=== PATIENT | female | born 1930 | race Caucasian/White ===

== ENCOUNTER 2020-04-24 18:37 | Inpatient (IN) ==
[2020-04-24] MEDS ORDERED: MAGNESIUM SULFATE 2 GM/50 ML BAG IV PRN (20:05)
[2020-04-24] MEDS ORDERED: ONDANSETRON 4 MG ODT TABLET SL PRN (20:05)
[2020-04-24] MEDS ORDERED: POTASSIUM CHLORIDE 40 MEQ in DEXTROSE 5% IN WATER 500 ML IV PRN (20:05)
[2020-04-24] MEDS ORDERED: POLYETHYLENE GLYCOL 3350 17 GM PACKET PO PRN (20:05)
[2020-04-24] MEDS ORDERED: IPRATROPIUM/ALBUTEROL 3 ML AMPUL.NEB NEB PRN (20:05)
[2020-04-24] MEDS ORDERED: ONDANSETRON 4 MG/2 ML VIAL IV PRN (20:05)
[2020-04-24] MEDS ORDERED: BISACODYL 10 MG SUPP.RECT PR PRN (20:05)
[2020-04-24] MEDS ORDERED: ACETAMINOPHEN 650 MG/65 ML BOTTLE IV PRN (20:05)
[2020-04-24] MEDS ORDERED: ACETAMINOPHEN 325 MG TABLET PO PRN (20:05)
[2020-04-24] MEDS ORDERED: guaiFENesin/CODEINE 10 ML UDC PO PRN (20:05)
[2020-04-24] MEDS ORDERED: MELATONIN 3 MG TABLET PO PRN (20:05)
[2020-04-24] MEDS ORDERED: POTASSIUM CHLORIDE 20 MEQ PACKET PO PRN (20:05)
[2020-04-24] MEDS ORDERED: VANCOMYCIN PER PHARMACY IV ONE (20:09)
[2020-04-24] MEDS ORDERED: AZTREONAM 2 GM VIAL IV SCH (20:15)
--- NOTE | 2020-04-24 20:21 | Internal Med History&Physical ---
HPI History of Present Illness Patient information: Note initiated : 04/24/20 at 8:11 pm Service Date, if different from initiated Date: [] Patient: Darlyn Tarango a 89 y/o F admitted on 04/24/20 for Hypoxia respiratory failure, pneumonia. Chief Complaint: [] History of present illness: Ms. Tarango is a 89 year old F fairly independent who lives a [place] presented to the [facility] ER with symptoms of increased weakness, fatigue malaise and loss of appetite. Symptoms have been progressing over the last couple of weeks with increasing yellowish-greenish foul-smelling sputum. She denies recent sick contacts but has been experiencing fever. She also has associated increasing dyspnea on exertion. With worsening symptoms she was evaluated where initial work-up was consistent with severe sepsis with white count 20,000, chest imaging consistent with right-sided volume loss/right midlung opacity consistent with consolidation and lobar collapse. She also carries a history of apical lobe mass lesion which she has been refusing further evaluation including a biopsy. Subsequently case was discussed with infectious specialist Dr. Sanchez who suggested treatment with aztreonam Zyvox and Flagyl. Unfortunately [facility] does not carry those antibiotics and the reason [facility] hospitalist was consulted for transfer and management of pneumonia. Patient was made aware and she agreed for transfer however she still would not want to pursue evaluation of possible lung malignancy leading to lung collapse. I received telephone signout from Dr. Fernando Blood Patient received at [facility] in stable state. Currently on room air minimally tachypneic. Able to answer most of the questions and endorse history as above. She denies diarrhea, dysuria, joint pain, rash, nausea vomiting or bloody stool. Review of systems 10 point review system was performed and is negative except for ones discussed above PFSH PFSH All Active Problems (Updated 02/09/20 @ 10:01 by Alphonso Snow MD) CHF (congestive heart failure) (Acute) Glaucoma (Acute) Pernicious anemia (Acute) Headache (Acute) Gastroenteritis (Acute) Dehydration (Acute) Hypertension (Acute) Episode of syncope (Acute) Constipation (Acute) Anemia (Acute) Hypothyroidism (Acute) Fall (Acute) Hematoma of parietal scalp (Acute) Acute hip pain (Acute) Chondrocalcinosis (Acute) Ascites (Acute) Medical History (Updated 02/09/20 @ 10:01 by Alphonso Snow MD) H/O supraventricular tachycardia (Acute) History of stomach cancer (Acute) Osteoporosis (Acute) Peripheral arterial disease (Acute) Social History (Updated 01/26/19 @ 10:47 by Cordelia Garcia PA-C) smoking status: Former smoker MEDS/ALLERGIES Home Medications and Allergies Home Medications Medication Instructions Recorded Confirmed Type levothyroxine 50 mcg capsule 50 mcg PO QDAY 01/26/19 02/08/20 History ascorbic acid (vitamin C) [Vitamin 500 mg PO DAILY 02/08/20 02/08/20 History C] atorvastatin 10 mg PO QDAY 02/08/20 02/08/20 History calcium carbonate 500 mg PO BID 02/08/20 02/08/20 History cholecalciferol (vitamin D3) 50 mcg PO QDAY 02/08/20 02/08/20 History [Vitamin D3] famotidine 20 mg PO QDAY 02/08/20 02/08/20 History furosemide 20 mg PO QDAY 02/08/20 02/08/20 History lisinopril 5 mg PO QDAY 02/08/20 02/08/20 History Allergies Allergy/AdvReac Type Severity Reaction Status Date / Time cephalexin Allergy Intermediate Hives/rash Verified 04/24/20 19:43 codeine Allergy Intermediate Verified 04/24/20 19:43 Erythromycin Base Allergy Intermediate Verified 04/24/20 19:43 hydrocodone Allergy Intermediate Verified 04/24/20 19:43 morphine Allergy Intermediate Verified 04/24/20 19:43 penicillin V Allergy Intermediate Verified 04/24/20 19:43 Penicillins Allergy Intermediate Verified 04/24/20 19:43 clindamycin Allergy Mild Verified 04/24/20 19:43 furosemide Allergy Mild Verified 04/24/20 19:43 acetaminophen Allergy Unknown Verified 02/08/20 11:07 nitrofurantoin Allergy Unknown Verified 02/08/20 11:07 No to Iodine Allergy Unknown Unknown Uncoded 12/14/14 12:34 No to Latex Allergy Unknown Uncoded 12/14/14 12:34 EXAM Constitutional Exam: Frail elderly, nondistressed Head normocephalic Oral cavity moist No ear nose discharge Eye movement symmetrical Neck supple no lymphadenopathy S1-S2 occasionally irregular Nonlabored breathing, diminished breath sounds right posterior chest Nondistended nontender abdomen Lower extremity no cyanosis clubbing or joint swelling Skin no suspicious lesion Psych anxious but alert cooperative Neuro normal higher function DATA Data Completed and Pending Labs: White count 19.5, hemoglobin 10, platelets 418, glucose 62, BUN 28, creati nine 1.4, sodium 130, potassium 3.38, calcium 8.1, LFTs unremarkable Impressions Impressions: X-ray chest right lobar collapse/midlung consolidation A/P Narrative A/P Narrative: * Right-sided pneumonia/lobar collapse possible bronchial occlusion secondary to mucous plug versus infiltrating bronchial tumor. CT chest in a.m. Initiate antibiotic coverage as per ID recommendation including aztreonam/vancomycin/Flagyl * Sepsis second above with white count 20,000. Continue management guidelines. Crystalloid/antibiotics/pancultures * History of hypertension continue home dose lisinopril/beta-mell Toprol 12.5 ER * Hyperlipidemia continue statin GERD continue H2 antagonist * Hypothyroidism continue thyroxine * DNR * Prophylaxis heparin Plan * Inpatient PCU admission in light of PSI score over 100 * CT chest in a.m. * Broad antibiotic coverage as per ID recommendations * Pre-existing medical condition management as above * Nutrition support Time Spent With Patient Time: Total time spent is greater than 50% in coordination of care (as documented) at patient's floor/unit and/or counseling patient:
[2020-04-24] MEDS: LISINOPRIL 5 MG TABLET PO SCH (20:24)
[2020-04-24] MEDS ORDERED: LISINOPRIL 10 MG TABLET ONE (20:27)
[2020-04-24] MEDS: 0.9 % SODIUM CHLORIDE 1,000 ML IV SCH (20:43)
[2020-04-24 21:00] LABS: POC Calcium, Ionized 1.08 mmEq/L (1.16-1.32); POC Creatinine 1.1 mg/dL (0.6-1.2); POC Potassium 3.8 mEql/L (3.3-5.1)
[2020-04-24] MEDS: HEPARIN 5,000 UNIT/ML VIAL SQ SCH (21:31)
[2020-04-24] MEDS: DOCUSATE SODIUM 100 MG CAPSULE PO SCH (21:32)
[2020-04-24] MEDS: SENNOSIDES/DOCUSATE SODIUM 1 TAB TABLET PO SCH (21:32)
[2020-04-24] MEDS: metroNIDAZOLE 500 MG/100 ML BAG IV SCH (22:04)
[2020-04-24] MEDS: 0.9 % SODIUM CHLORIDE 10 ML SYRINGE IV SCH (22:22)
[2020-04-24] MEDS: VANCOMYCIN 1,000 MG in 0.9 % SODIUM CHLORIDE 250 ML IV SCH (23:37)
[2020-04-25] MEDS: metroNIDAZOLE 500 MG/100 ML BAG IV SCH ×3 (05:54→21:49)
[2020-04-25] MEDS: AZTREONAM 1 GM VIAL IV SCH ×3 (05:56→21:49)
[2020-04-25] MEDS: 0.9 % SODIUM CHLORIDE 10 ML SYRINGE IV SCH ×3 (05:59→21:45)
[2020-04-25] MEDS ORDERED: VANCOMYCIN PER PHARMACY IV SCH (07:00)
[2020-04-25] MEDS ORDERED: IOPAMIDOL 100 ML BOTTLE IV ONE (08:06)
[2020-04-25 08:35] LABS: ALT/SGPT 13 U/L (<40); AST/SGOT 26 U/L (<32); Albumin 1.9 gm/dL (3.2-5.2); Albumin/Globulin Ratio 0.6 (1.0-2.3); Alkaline Phosphatase 141 U/L (39-117); Bilirubin,Direct < 0.2 mg/dL (<0.3); Bilirubin,Total 0.4 mg/dL (0.1-1.0); Blood Urea Nitrogen 27 mg/dL (8-23); Carbon Dioxide 20 mmol/L (22-30); Chloride 99 mmol/L (96-108); Globulin 3.2 gm/dL (2.2-3.7); Glomerular Filtration Rate 44; Glucose 62 mg/dL (70-105); Lactate Dehydrogenase 238 U/L (135-225); Phosphorous 3.8 mg/dL (2.5-4.5); Triglycerides 112 mg/dL (<150); Uric Acid 5.8 mg/dL (2.5-8.0)
[2020-04-25 08:55] LABS: Lymphocytes % 3 % (15-49); Mean Cell Volume 91.8 fL (80.0-100.0); Mean Corpuscular HGB Conc 33.3 g/dL (31.0-36.0); Mean Platelet Volume 9.5 fL (7.4-10.4); Monocytes % (Manual) 4 % (1-12); Platelet Count 421 K/mcL (140-440); Platelet Estimate NORMAL (Normal); RBC 2.94 M/mcL (4.00-5.20); RBC Morphology NORMAL (Normal); Red Cell Distribution Width 13.7 % (11.5-14.5); Segmented Neutrophils % 93 % (38-78); WBC 22.3 K/mcL (4.5-11.0)
[2020-04-25] MEDS: MULTIVIT,THER IRON,CA,FA & MIN 1 TABLET PO SCH (10:24)
[2020-04-25] MEDS: DOCUSATE SODIUM 100 MG CAPSULE PO SCH ×2 (10:24→21:45)
[2020-04-25] MEDS: LISINOPRIL 5 MG TABLET PO SCH (10:24)
[2020-04-25] MEDS: HEPARIN 5,000 UNIT/ML VIAL SQ SCH ×2 (10:25→21:45)
[2020-04-25] MEDS: VANCOMYCIN 1,000 MG in 0.9 % SODIUM CHLORIDE 250 ML IV SCH (10:36)
--- NOTE | 2020-04-25 13:38 | Internal Med Progress Note ---
SUBJECTIVE Subjective Patient information: Note initiated : 04/25/20 at 1:34 pm Service Date, if different from initiated Date: [] Patient: Darlyn Tarango a 89 y/o F admitted on 04/24/20 for Hypoxia respiratory failure, pneumonia. Chief Complaint: History of present illness: Ms. Tarango is a 89 year old F fairly independent who lives a [place] presented to the [facility] ER with symptoms of increased weakness, fatigue malaise and loss of appetite. Symptoms have been progressing over the last couple of weeks with increasing yellowish-greenish foul-smelling sputum. She denies recent sick contacts but has been experiencing fever. She also has associated increasing dyspnea on exertion. With worsening symptoms she was evaluated where initial work-up was consistent with severe sepsis with white count 20,000, chest imaging consistent with right-sided volume loss/right midlung opacity consistent with consolidation and lobar collapse. She also carries a history of apical lobe mass lesion which she has been refusing further evaluation including a biopsy. Subsequently case was discussed with infectious specialist Dr. Sanchez who suggested treatment with aztreonam Zyvox and Flagyl. Unfortunately [facility] does not carry those antibiotics and the reason [facility] hospitalist was consulted for transfer and management of pneumonia. Patient was made aware and she agreed for transfer however she still would not want to pursue evaluation of possible lung malignancy leading to lung collapse. I received telephone signout from Dr. Fernando Blood Patient received at [facility] in stable state. Currently on room air minimally tachypneic. Able to answer most of the questions and endorse history as above. She denies diarrhea, dysuria, joint pain, rash, nausea vomiting or bloody stool. 04/25-patient status quo however worsening labs including leukocytosis of 22K. CT chest results pending. On broad antibiotic coverage. No overnight fever chills. Continue nutrition support Constitutional Vitals: Vital Signs Temp Pulse Resp BP Pulse Ox 98.4 F 79 23 H 179/77 99 04/25/20 12:01 04/25/20 04:26 04/25/20 12:01 04/25/20 12:01 04/25/20 12:01 Period Temp Pulse Resp BP Sys/Jackson Pulse Ox Last 24 Hr 97.4 F-99.4 F 76-83 6-23 125-202/54-98 95-100 Intake and Output 04/24/20 04/25/20 04/25/20 21:59 05:59 13:59 Intake Total 350 240 Output Total 250 Balance 350 -10 Weight 49.623 kg Alert and oriented Nonlabored breathing Minimal anxiety Intake & Output: Intake & Output 04/24/20 04/25/20 04/25/20 21:59 05:59 13:59 Intake Total 350 240 Output Total 250 Balance 350 -10 Weight 49.623 kg Intake: IV 350 Vancomycin 1,000 mg In Sodium 250 Chloride 0.9% 250 ml @ 250 mls/ hr IV Q24H [facility] Rx#:[id number] Oral 240 Output: Void Amount 250 Other: Meal Breakfast Percent of Meal Consumed 75% Feeding Ability Independent Urine Appearance Clear Clear Urine Color Dark Yellow Dark Yellow Urine Odor Normal Normal # Voids 1 OBJ DATA Labs CBC & Chem 7: 04/25/20 05:10 04/25/20 05:10 Labs: Abnormal Lab Results 04/25/20 04/25/20 04/24/20 05:10 05:10 20:53 WBC 22.3 H RBC 2.94 L Hgb 9.0 L Hct 27.0 L POC Hct 31 L Seg Neutrophils % 93 H Lymphocytes % 3 L POC Sodium 130 L Sodium 132 L Carbon Dioxide 20 L POC BUN 29 H BUN 27 H Glucose 62 L Calcium 8.0 L POC WB Ioniz Calcium 1.08 L Alkaline Phosphatase 141 H Lactate Dehydrogenase 238 H Total Protein 5.1 L Albumin 1.9 L Albumin/Globulin Ratio 0.6 L Meds: Medications Acetaminophen (Tylenol) 650 mg PO Q4-6HP PRN; Protocol PRN Reason: Per Pain Protocol/Fever > 101 Albuterol/Ipratropium (Duoneb) 3 ml NEB Q4HP PRN PRN Reason: Shortness Of Breath Aztreonam (Azactam) 1 gm IV Q8H [facility]; Protocol Last Admin: 04/25/20 13:12 Dose: 1 gm Documented by: Bisacodyl (Dulcolax) 10 mg GA Q2-3DAYS PRN PRN Reason: Constipation Docusate Sodium (Colace) 100 mg PO BID [facility] Last Admin: 04/25/20 10:24 Dose: 100 mg Documented by: Guaifenesin/Codeine Phosphate (Robitussin Ac) 10 ml PO Q4HP PRN PRN Reason: Cough Heparin Sodium (Porcine) (Heparin) 5,000 unit SQ Q12 [facility] Last Admin: 04/25/20 10:25 Dose: 5,000 unit Documented by: Potassium Chloride 40 meq/ (Dextrose) 520 mls @ 130 mls/hr IV UD PRN PRN Reason: K+ = or < 3.5 Acetaminophen (Ofirmev) 650 mg in 65 mls @ 130 mls/hr IV Q6HP PRN; Protocol PRN Reason: Per Pain Protocol/Fever > 101 Magnesium Sulfate (Magnesium Sulfate) 2 gm in 50 mls @ 50 mls/hr IV UD PRN PRN Reason: MG = or < 1.7 Sodium Chloride (Sodium Chloride 0.9%) 1,000 mls @ 50 mls/hr IV .Q20H [facility] Stop: 04/27/20 08:14 Last Admin: 04/24/20 20:43 Dose: 50 mls/hr Documented by: Metronidazole (Flagyl) 500 mg in 100 mls @ 100 mls/hr IV Q8H [facility]; Protocol Last Admin: 04/25/20 05:54 Dose: 100 mls/hr Documented by: Vancomycin HCl 1,000 mg/ (Sodium Chloride) 250 mls @ 250 mls/hr IV Q24H [facility] Last Admin: 04/25/20 10:36 Dose: 250 mls/hr Documented by: Iron Carb/Multivit/Daniels/Folic Acid (Multivitamin W/Minerals) 1 tab PO DAILY [facility] Last Admin: 04/25/20 10:24 Dose: 1 tab Documented by: Lisinopril (Zestril) 5 mg PO DAILY [facility] Last Admin: 04/25/20 10:24 Dose: 5 mg Documented by: Melatonin (Melatonin 3mg Tablet) 3 mg PO HSP PRN PRN Reason: Insomnia Ondansetron HCl (Zofran Odt) 4 mg SL Q4-6HP PRN; Protocol PRN Reason: Nausea And Vomiting Ondansetron HCl (Zofran) 4 mg IV Q4-6HP PRN; Protocol PRN Reason: Nausea And Vomiting Polyethylene Glycol (Miralax) 17 gm PO DAILYP PRN PRN Reason: Constipation Potassium Chloride (Klor-Con) 40 meq PO DAILYP PRN PRN Reason: K+ < 3.5 Senna/Docusate Sodium (Senna Plus Tablet) 1 tab PO HS [facility] Last Admin: 04/24/20 21:32 Dose: Not Given Documented by: Sodium Chloride (Saline Flush) 10 ml IV Q8 [facility] Last Admin: 04/25/20 05:59 Dose: 10 ml Documented by: Vancomycin HCl (Vancomycin Per Pharmacy) 1 order IV UD [facility]; Protocol A/P Narrative A/P Narrative: * Right-sided pneumonia/lobar collapse possible bronchial occlusion secondary to mucous plug versus infiltrating bronchial tumor. Await chest CT results.continue antibiotic coverage as per ID recommendation including aztreonam/vancomycin/Flagyl * Sepsis second above with white count 22K. Continue management per guidelines. Crystalloid/antibiotics/pancultures * History of hypertension continue home dose lisinopril/beta-mell Toprol 12.5 ER * Hyperlipidemia continue statin GERD continue H2 antagonist * Hypothyroidism continue thyroxine * DNR * Prophylaxis heparin Plan * Continue antibiotic coverage * Await chest results * Pre-existing medical condition management as above * Nutrition support * PT OT * discharge planning Time Spent With Patient Time: Total time spent is greater than 50% in coordination of care (as documented) at patient's floor/unit and/or counseling patient:
[2020-04-25] MEDS: OMEPRAZOLE 20 MG CAPSULE PO SCH (17:34)
[2020-04-25] MEDS: CALCIUM (OYSTER SHELL) 500 MG TABLET PO SCH (21:45)
[2020-04-25] MEDS: SENNOSIDES/DOCUSATE SODIUM 1 TAB TABLET PO SCH (21:45)
[2020-04-26] MEDS: 0.9 % SODIUM CHLORIDE 1,000 ML IV SCH ×4 (01:15→21:35)
--- NOTE | 2020-04-26 06:02 | Cat Scan Report ---
CLINICAL INFORMATION: Hypoxia. Respiratory failure COMPARISON: Chest, abdomen and pelvic CT 10/04/2019 TECHNIQUE: 80 cc of Isovue-370 were injected intravenously, and 25 seconds later, 0.625 mm helical slices were obtained from the lung apices through the bases. Following reconstruction, 2.5 mm sagittal, coronal and axial reformations were processed and reviewed at lung, mediastinal and bone windows. 7 mm axial MIPS were also obtained to optimize pulmonary nodule detection. The exam was performed using radiation dose optimization techniques including, but not limited to, automated exposure control, adjustment of the mA and/or kV according to patient size and use of iterative reconstruction technique. FINDINGS: Pulmonary parenchymal windows show a large mass diffusely permeating throughout the entire right middle lobe resulting in complete right middle lobe collapse. There is inhomogeneous attenuation of the mass with cavitation peripherally. It is suspicious for primary lung carcinoma. Underlying moderate chronic bronchitis with pleural-parenchymal fibrosis in the apical regions, lateral right upper lobe and scattered within the periphery of the lower lobes seen - as before. A new small region of tree-in-bud airspace disease in the posterior right lower lobe on image 66 may be inflammatory. A 4.8 mm nodule in the anterior segment the right upper lobe on MIP image 38 show slight increase in size: The more likely inflammatory than a metastasis. New moderate right pleural effusion results in subsegmental compressive atelectasis in the posterior right lower lobe. Small left pleural effusion has also developed. Mediastinal windows show the thoracic aorta is normal diameter with diffuse intimal thickening. The pulmonary arteries are well opacified - no evidence of embolus. Central pulmonary arteries are normal diameter - no evidence of pulmonary hypertension. Enlarged lymph nodes in the right hilum, subcarinal region, precarinal region have increased and may represent metastatic adenopathy. The esophagus is grossly normal. Thyroid is diminutive. Images should the abdomen show moderate ascites. No other abnormality. Bone windows show no osseous abnormality IMPRESSION: 1. Completely consolidated infiltration of the entire right middle lobe with associated volume loss. Enhancement pattern is inhomogeneous with peripheral cavitation. Suspect primary lung carcinoma. Suggest pulmonary referral for bronchoscopy. Moderate lymph node enlargement of the right hilum and inferior mediastinum are likely metastatic. No other definite metastases. 2. Moderate right and small left pleural effusions - new. 3. Underlying chronic bronchitis with scattered pleural parenchymal fibrosis particularly in the upper lobes. 4. 5 mm nodule anterior segment the right upper lobe show slight increase. It is more likely a granuloma than a metastasis. 5. Moderate ascites Interpreted and Authenticated by: Mulugeta Jolly 04/26/20
[2020-04-26] MEDS: 0.9 % SODIUM CHLORIDE 10 ML SYRINGE IV SCH ×3 (06:18→21:30)
[2020-04-26] MEDS: metroNIDAZOLE 500 MG/100 ML BAG IV SCH ×3 (06:18→21:23)
[2020-04-26] MEDS: AZTREONAM 1 GM VIAL IV SCH ×3 (06:18→21:22)
[2020-04-26] MEDS ORDERED: LEVOTHYROXINE 75 MCG TABLET PO SCH (07:30)
[2020-04-26] MEDS: OMEPRAZOLE 20 MG CAPSULE PO SCH ×2 (07:43→17:39)
--- NOTE | 2020-04-26 08:43 | XRay Report ---
CLINICAL INFORMATION: Right middle lobe infiltrative mass COMPARISON: 04/24/2020 FINDINGS: Large mass infiltrates the entire right middle lobe - as before. Underlying COPD changes noted. Right hilum is enlarged compatible with adenopathy. The left hilum and remaining cardiomediastinal silhouette are normal. No effusions. IMPRESSION: Large mass infiltrating the entire right middle lobe. On the basis CT, it is suspicious for pulmonary malignancy. Suggest bronchoscopy Interpreted and Authenticated by: Mulugeta Jolly 04/26/20
[2020-04-26] MEDS ORDERED: FAMOTIDINE 20 MG TABLET PO SCH (09:00)
[2020-04-26] MEDS ORDERED: LISINOPRIL 5 MG TABLET PO SCH (09:00)
[2020-04-26] MEDS ORDERED: FUROSEMIDE 20 MG TABLET PO SCH (09:00)
[2020-04-26] MEDS ORDERED: VITAMIN D3 1,000 UNIT TABLET PO SCH (09:00)
[2020-04-26] MEDS ORDERED: METOPROLOL SUCCINATE 25 MG TAB.XL.24H PO SCH (09:00)
[2020-04-26] MEDS ORDERED: ASCORBIC ACID 500 MG TABLET PO SCH (09:00)
[2020-04-26] MEDS ORDERED: ATORVASTATIN 10 MG TABLET PO SCH (09:00)
[2020-04-26 09:31] LABS: ALT/SGPT 10 U/L (<40); AST/SGOT 14 U/L (<32); Albumin 1.7 gm/dL (3.2-5.2); Albumin/Globulin Ratio 0.6 (1.0-2.3); Alkaline Phosphatase 132 U/L (39-117); Bilirubin,Direct < 0.2 mg/dL (<0.3); Bilirubin,Total 0.3 mg/dL (0.1-1.0); Blood Urea Nitrogen 26 mg/dL (8-23); Calcium 7.4 mg/dL (8.6-10.4); Carbon Dioxide 20 mmol/L (22-30); Chloride 101 mmol/L (96-108); Globulin 2.9 gm/dL (2.2-3.7); Glomerular Filtration Rate 50; Glucose 99 mg/dL (70-105); Hematocrit 24.6 % (36.0-48.0); Hemoglobin 8.1 g/dL (12.0-15.0); Lactate Dehydrogenase 155 U/L (135-225); Lymphocytes % 3 % (15-49); Mean Cell Volume 93.5 fL (80.0-100.0); Mean Corpuscular HGB Conc 32.9 g/dL (31.0-36.0); Mean Platelet Volume 9.3 fL (7.4-10.4); Platelet Count 400 K/mcL (140-440); Platelet Estimate NORMAL (Normal); RBC 2.63 M/mcL (4.00-5.20); RBC Morphology NORMAL (Normal); Reactive Lymphocytes 6 % (0-2); Red Cell Distribution Width 14.2 % (11.5-14.5); Segmented Neutrophils % 91 % (38-78); Triglycerides 61 mg/dL (<150); Uric Acid 5.2 mg/dL (2.5-8.0); WBC 16.2 K/mcL (4.5-11.0)
--- NOTE | 2020-04-26 10:12 | Internal Med Progress Note ---
SUBJECTIVE Subjective Patient information: Note initiated : 04/26/20 at 10:08 am Service Date, if different from initiated Date: [] Patient: Darlyn Tarango a 89 y/o F admitted on 04/24/20 for Hypoxia respiratory failure, pneumonia. Chief Complaint: History of present illness: Ms. Tarango is a 89 year old F fairly independent who lives a [place] presented to the [facility] ER with symptoms of increased weakness, fatigue malaise and loss of appetite. Symptoms have been progressing over the last couple of weeks with increasing yellowish-greenish foul-smelling sputum. She denies recent sick contacts but has been experiencing fever. She also has associated increasing dyspnea on exertion. With worsening symptoms she was evaluated where initial work-up was consistent with severe sepsis with white count 20,000, chest imaging consistent with right-sided volume loss/right midlung opacity consistent with consolidation and lobar collapse. She also carries a history of apical lobe mass lesion which she has been refusing further evaluation including a biopsy. Subsequently case was discussed with infectious specialist Dr. Sanchez who suggested treatment with aztreonam Zyvox and Flagyl. Unfortunately [facility] does not carry those antibiotics and the reason [facility] hospitalist was consulted for transfer and management of pneumonia. Patient was made aware and she agreed for transfer however she still would not want to pursue evaluation of possible lung malignancy leading to lung collapse. I received telephone signout from Dr. Fernando Blood Patient received at [facility] in stable state. Currently on room air minimally tachypneic. Able to answer most of the questions and endorse history as above. She denies diarrhea, dysuria, joint pain, rash, nausea vomiting or bloody stool. 04/25-patient status quo however worsening labs including leukocytosis of 22K. CT chest results pending. On broad antibiotic coverage. No overnight fever chills. Continue nutrition support 04/26-CT chest shows complete consolidation of right middle lobe with peripheral cavitation and suspected primary lung carcinoma. White count is 16,000. Discussed with patient who would not want further interventions. Also case discussed with patient's primary care physician Fernando Blood on phone. Constitutional Vitals: Vital Signs Temp Pulse Resp BP Pulse Ox 99 F 82 16 128/57 97 04/26/20 08:00 04/26/20 08:00 04/26/20 08:00 04/26/20 08:00 04/26/20 08:00 Period Temp Pulse Resp BP Sys/Jackson Pulse Ox Last 24 Hr 98.3 F-99 F 68-86 8-23 114-179/52-78 91-100 Intake and Output 04/25/20 04/26/20 04/26/20 21:59 05:59 13:59 Intake Total 1580 100 Output Total 450 Balance 1580 -350 alert weight 48.308 kg alert Nonlabored breathing Anxious Frail elderly Intake & Output: Intake & Output 04/25/20 04/26/20 04/26/20 21:59 05:59 13:59 Intake Total 1580 100 Output Total 450 Balance 1580 -350 Weight 48.308 kg Intake: IV 1100 100 Sodium Chloride 0.9% 1,000 ml @ 1000 50 mls/hr IV .Q20H [facility] Rx#: [id number] Oral 480 Output: Void Amount 450 Other: Meal Lunch Snack Percent of Meal Consumed 50% 100% Feeding Ability Independent Assist with Tray Set Up Urine Appearance Clear Clear Urine Color Dark Yellow Dark Yellow Urine Odor Normal Normal Stool Size Large Stool Color Brown Stool Consistency Soft Loose # Bowel Movements 1 OBJ DATA Labs CBC & Chem 7: 04/26/20 05:15 04/26/20 05:15 Labs: Abnormal Lab Results 04/26/20 04/26/20 04/25/20 05:15 05:15 05:10 WBC 16.2 H RBC 2.63 L Hgb 8.1 L Hct 24.6 L POC Hct Seg Neutrophils % 91 H Lymphocytes % 3 L Reactive Lymphocytes 6 H POC Sodium Sodium 132 L 132 L Potassium 3.2 L Carbon Dioxide 20 L 20 L POC BUN BUN 26 H 27 H Glucose 62 L Calcium 7.4 L 8.0 L POC WB Ioniz Calcium Alkaline Phosphatase 132 H 141 H Lactate Dehydrogenase 238 H Total Protein 4.6 L 5.1 L Albumin 1.7 L 1.9 L Albumin/Globulin Ratio 0.6 L 0.6 L 04/25/20 04/24/20 05:10 20:53 WBC 22.3 H RBC 2.94 L Hgb 9.0 L Hct 27.0 L POC Hct 31 L Seg Neutrophils % 93 H Lymphocytes % 3 L Reactive Lymphocytes POC Sodium 130 L Sodium Potassium Carbon Dioxide POC BUN 29 H BUN Glucose Calcium POC WB Ioniz Calcium 1.08 L Alkaline Phosphatase Lactate Dehydrogenase Total Protein Albumin Albumin/Globulin Ratio Meds: Medications Acetaminophen (Tylenol) 650 mg PO Q4-6HP PRN; Protocol PRN Reason: Per Pain Protocol/Fever > 101 Albuterol/Ipratropium (Duoneb) 3 ml NEB Q4HP PRN PRN Reason: Shortness Of Breath Last Admin: 04/26/20 02:30 Dose: 3 ml Documented by: Ascorbic Acid (Vitamin C) 500 mg PO DAILY [facility] Atorvastatin Calcium (Lipitor) 10 mg PO QDAY [facility] Aztreonam (Azactam) 1 gm IV Q8H [facility]; Protocol Last Admin: 04/26/20 06:18 Dose: 1 gm Documented by: Bisacodyl (Dulcolax) 10 mg [place] Q2-3DAYS PRN PRN Reason: Constipation Calcium Carbonate/Glycine (Oscal) 500 mg PO BID [facility] Last Admin: 04/25/20 21:45 Dose: 500 mg Documented by: Docusate Sodium (Colace) 100 mg PO BID [facility] Last Admin: 04/25/20 21:45 Dose: Not Given Documented by: Famotidine (Pepcid) 20 mg PO QDAY [facility] Furosemide (Lasix) 20 mg PO QDAY [facility] Guaifenesin/Codeine Phosphate (Robitussin Ac) 10 ml PO Q4HP PRN PRN Reason: Cough Heparin Sodium (Porcine) (Heparin) 5,000 unit SQ Q12 [facility] Last Admin: 04/25/20 21:45 Dose: 5,000 unit Documented by: Potassium Chloride 40 meq/ (Dextrose) 520 mls @ 130 mls/hr IV UD PRN PRN Reason: K+ = or < 3.5 Acetaminophen (Ofirmev) 650 mg in 65 mls @ 130 mls/hr IV Q6HP PRN; Protocol PRN Reason: Per Pain Protocol/Fever > 101 Magnesium Sulfate (Magnesium Sulfate) 2 gm in 50 mls @ 50 mls/hr IV UD PRN PRN Reason: MG = or < 1.7 Sodium Chloride (Sodium Chloride 0.9%) 1,000 mls @ 50 mls/hr IV .Q20H [facility] Stop: 04/27/20 08:14 Last Admin: 04/26/20 01:15 Dose: 50 mls/hr Documented by: Metronidazole (Flagyl) 500 mg in 100 mls @ 100 mls/hr IV Q8H [facility]; Protocol Last Admin: 04/26/20 06:18 Dose: 100 mls/hr Documented by: Vancomycin HCl 1,000 mg/ (Sodium Chloride) 250 mls @ 250 mls/hr IV Q24H [facility] Last Infusion: 04/25/20 11:36 Dose: Infused Documented by: Iron Carb/Multivit/[place]/Folic Acid (Multivitamin W/Minerals) 1 tab PO DAILY [facility] Last Admin: 04/25/20 10:24 Dose: 1 tab Documented by: Levothyroxine Sodium (Synthroid) 75 mcg PO QAMAC [facility] Last Admin: 04/26/20 07:43 Dose: 75 mcg Documented by: Lisinopril (Zestril) 5 mg PO DAILY [facility] Last Admin: 04/25/20 10:24 Dose: 5 mg Documented by: Lisinopril (Zestril) 5 mg PO QDAY [facility] Melatonin (Melatonin 3mg Tablet) 3 mg PO HSP PRN PRN Reason: Insomnia Metoprolol Succinate (Toprol Xl) 12.5 mg PO DAILY [facility] Omeprazole (Prilosec) 40 mg PO BIDAC [facility] Last Admin: 04/26/20 07:43 Dose: 40 mg Documented by: Ondansetron HCl (Zofran Odt) 4 mg SL Q4-6HP PRN; Protocol PRN Reason: Nausea And Vomiting Ondansetron HCl (Zofran) 4 mg IV Q4-6HP PRN; Protocol PRN Reason: Nausea And Vomiting Polyethylene Glycol (Miralax) 17 gm PO DAILYP PRN PRN Reason: Constipation Potassium Chloride (Klor-Con) 40 meq PO DAILYP PRN PRN Reason: K+ < 3.5 Senna/Docusate Sodium (Senna Plus Tablet) 1 tab PO HS [facility] Last Admin: 04/25/20 21:45 Dose: Not Given Documented by: Sodium Chloride (Saline Flush) 10 ml IV Q8 [facility] Last Admin: 04/26/20 06:18 Dose: 10 ml Documented by: Vancomycin HCl (Vancomycin Per Pharmacy) 1 order IV UD [facility]; Protocol Vitamin D (Vitamin D3) 2,000 unit PO DAILY [facility] A/P Narrative A/P Narrative: * Right middle lobe pneumonia/complete lobar consolidation with necrosis. Likely primary bronchogenic carcinoma. ON antibiotic coverage as per ID recom mendation including aztreonam/vancomycin/Flagyl. Goals of care conference. Patient would not want to pursue aggressive intervention. * Sepsis second above with white count 22K-> 15 K. * History of hypertension continue home dose lisinopril/beta-mell Toprol 12.5 ER * Hyperlipidemia continue statin GERD continue H2 antagonist * Hypothyroidism continue thyroxine * DNR * Prophylaxis heparin Plan * Continue antibiotic coverage * Pre-existing medical condition management as above * Nutrition support * PT OT * Overall extremely poor prognosis in the setting of metastatic lung cancer * discharge planning likely home with hospice Time Spent With Patient Time: Total time spent is greater than 50% in coordination of care (as do cumented) at patient's floor/unit and/or counseling patient:
[2020-04-26] MEDS: LISINOPRIL 5 MG TABLET PO SCH (10:30)
[2020-04-26] MEDS: HEPARIN 5,000 UNIT/ML VIAL SQ SCH ×2 (10:30→21:22)
[2020-04-26] MEDS: MULTIVIT,THER IRON,CA,FA & MIN 1 TABLET PO SCH (10:30)
[2020-04-26] MEDS: DOCUSATE SODIUM 100 MG CAPSULE PO SCH ×2 (10:31→21:23)
[2020-04-26] MEDS: CALCIUM (OYSTER SHELL) 500 MG TABLET PO SCH ×2 (10:31→21:22)
[2020-04-26] MEDS: VANCOMYCIN 1,000 MG in 0.9 % SODIUM CHLORIDE 250 ML IV SCH (10:33)
[2020-04-26] MEDS ORDERED: POLYETHYLENE GLYCOL 3350 17 GM PACKET PO PRN (14:57)
[2020-04-26] MEDS ORDERED: MAGNESIUM SULFATE 2 GM/50 ML BAG IV PRN (14:57)
[2020-04-26] MEDS ORDERED: guaiFENesin/CODEINE 10 ML UDC PO PRN (14:57)
[2020-04-26] MEDS ORDERED: POTASSIUM CHLORIDE 20 MEQ PACKET PO PRN (14:57)
[2020-04-26] MEDS ORDERED: ONDANSETRON 4 MG/2 ML VIAL IV PRN (14:57)
[2020-04-26] MEDS ORDERED: ONDANSETRON 4 MG ODT TABLET SL PRN (14:57)
[2020-04-26] MEDS ORDERED: VANCOMYCIN PER PHARMACY IV SCH (14:57)
[2020-04-26] MEDS ORDERED: IPRATROPIUM/ALBUTEROL 3 ML AMPUL.NEB NEB PRN (14:57)
[2020-04-26] MEDS ORDERED: ACETAMINOPHEN 325 MG TABLET PO PRN (14:57)
[2020-04-26] MEDS ORDERED: BISACODYL 10 MG SUPP.RECT PR PRN (14:57)
[2020-04-26] MEDS ORDERED: IOPAMIDOL 100 ML BOTTLE IV ONE (14:57)
[2020-04-26] MEDS ORDERED: POTASSIUM CHLORIDE 40 MEQ in DEXTROSE 5% IN WATER 500 ML IV PRN (14:57)
[2020-04-26] MEDS ORDERED: SENNOSIDES/DOCUSATE SODIUM 1 TAB TABLET PO SCH (21:00)
[2020-04-26] MEDS ORDERED: MELATONIN 3 MG TABLET PO PRN (21:00)
[2020-04-27] MEDS: ACETAMINOPHEN 650 MG/65 ML BOTTLE IV PRN (04:30)
[2020-04-27] MEDS: metroNIDAZOLE 500 MG/100 ML BAG IV SCH (05:26)
[2020-04-27] MEDS: AZTREONAM 1 GM VIAL IV SCH (05:26)
[2020-04-27] MEDS: 0.9 % SODIUM CHLORIDE 10 ML SYRINGE IV SCH (05:27)
[2020-04-27] MEDS: DOCUSATE SODIUM 100 MG CAPSULE PO SCH (07:07)
[2020-04-27] MEDS ORDERED: LEVOTHYROXINE 75 MCG TABLET PO SCH (07:30)
[2020-04-27] MEDS ORDERED: POTASSIUM CHLORIDE 20 MEQ TABLET PO ONE (08:10)
[2020-04-27] MEDS: CALCIUM (OYSTER SHELL) 500 MG TABLET PO SCH (08:44)
[2020-04-27] MEDS: OMEPRAZOLE 20 MG CAPSULE PO SCH (08:48)
[2020-04-27] MEDS ORDERED: VITAMIN D3 1,000 UNIT TABLET PO SCH (09:00)
[2020-04-27] MEDS ORDERED: ATORVASTATIN 10 MG TABLET PO SCH (09:00)
[2020-04-27] MEDS ORDERED: FAMOTIDINE 20 MG TABLET PO SCH (09:00)
[2020-04-27] MEDS ORDERED: MULTIVIT,THER IRON,CA,FA & MIN 1 TABLET PO SCH (09:00)
[2020-04-27] MEDS ORDERED: METOPROLOL SUCCINATE 25 MG TAB.XL.24H PO SCH (09:00)
[2020-04-27] MEDS ORDERED: ASCORBIC ACID 500 MG TABLET PO SCH (09:00)
[2020-04-27] MEDS ORDERED: FUROSEMIDE 20 MG TABLET PO SCH (09:00)
[2020-04-27] MEDS: HEPARIN 5,000 UNIT/ML VIAL SQ SCH (09:00)
[2020-04-27] MEDS ORDERED: LISINOPRIL 5 MG TABLET PO SCH (09:00)
[2020-04-27] MEDS ORDERED: VANCOMYCIN 1,000 MG in 0.9 % SODIUM CHLORIDE 250 ML IV SCH (09:00)
--- NOTE | 2020-04-27 09:51 | Discharge Summary ---
Discharge Provider Provider Patient information: Note initiated : 04/27/20 at 9:47 am Service Date, if different from initiated Date: [] Patient: Darlyn Tarango a 89 y/o F admitted on 04/24/20 for Hypoxia respiratory failure, pneumonia. Chief Complaint: Discharge diagnosis * Right middle lobe pneumonia/complete lobar consolidation with necrosis. Likely primary bronchogenic carcinoma causing obstructive pneumonia. Continue antibiotic coverage for additional 5 days oral third-generation cephalosporin/Flagyl. * Lung malignancy on CT. Likely primary bronchogenic carcinoma. Patient does not want further intervention including biopsy. Discussed with patient and son Mendez. Patient and family want to transition to hospice. * Hypokalemia managed with replacement * Sepsis secondary to above with white count 22K-> 15 K. * History of hypertension managed on home dose lisinopril/beta-mell Toprol 12.5 ER * Hyperlipidemia managed on statin GERD continue H2 antagonist * Hypothyroidism managed on thyroxine Brief hospital course History of present illness: Ms. Tarango is a 89 year old F fairly independent who lives a [place] presented to the [facility] ER with symptoms of increased weakness, fatigue malaise and loss of appetite. Symptoms have been progressing over the last couple of weeks with increasing yellowish-greenish foul-smelling sputum. She denies recent sick contacts but has been experiencing fever. She also has associated increasing dyspnea on exertion. With worsening symptoms she was evaluated where initial work-up was consistent with severe sepsis with white count 20,000, chest imaging consistent with right-sided volume loss/right midlung opacity consistent with consolidation and lobar collapse. She also carries a history of apical lobe mass lesion which she has been refusing further evaluation including a biopsy. Subsequently case was discussed with infectious specialist Dr. Sanchez who suggested treatment with aztreonam Zyvox and Flagyl. Unfortunately [facility] does not carry those antibiotics and the reason [facility] hospitalist was consulted for transfer and management of pneumonia. Patient was made aware and she agreed for transfer however she still would not want to pursue marguerite luation of possible lung malignancy leading to lung collapse. I received telephone signout from Dr. Fernando Blood Patient received at [facility] in stable state. Currently on room air minimally tachypneic. Able to answer most of the questions and endorse history as above. She denies diarrhea, dysuria, joint pain, rash, nausea vomiting or bloody stool. 10/14-patient status quo however worsening labs including leukocytosis of 22K. CT chest results pending. On broad antibiotic coverage. No overnight fever chills. Continue nutrition support 04/26-CT chest shows complete consolidation of right middle lobe with peripheral cavitation and suspected primary lung carcinoma. White count is 16,000. Discussed with patient who would not want further interventions. Also case discussed with patient's primary care physician Fernando Blood on phone. Case discussed with son Mendez Tarango at [phone]. Son would want patient to transition to home hospice due to visitation restriction at [facility]. Discussed with research agricultural engineer Diamond who will further get in touch with patient's family regarding goals of care and discharge planning 04/27-patient will be transferred to swing bed at [facility] on comfort care interventions. No overnight fever chills. Continue antibiotic for additional 5 days. Following discharge all therapies/activities and diets will be based on comfort and medications for pre-existing medical conditions can be discontinued based on patient and family preference Date of admission: 04/24/20 18:57 Discharge date: 04/27/20 Primary care physician: Iraj Montanez Discharge Meds Discharge Medications Home Medications ascorbic acid (vitamin C) [Vitamin C] 500 mg PO DAILY 02/08/20 [History Confirmed 04/25/20 Last Taken Unknown] atorvastatin 10 mg PO QDAY 02/08/20 [History Confirmed 04/25/20 Last Taken Unknown] calcium carbonate 500 mg PO BID 02/08/20 [History Confirmed 04/25/20 Last Taken Unknown] cholecalciferol (vitamin D3) [Vitamin D3] 50 mcg PO QDAY 02/08/20 [History Confirmed 04/25/20 Last Taken Unknown] famotidine 20 mg PO QDAY 02/08/20 [History Confirmed 04/25/20 Last Taken Unknown] furosemide 20 mg PO QDAY 02/08/20 [History Confirmed 04/25/20 Last Taken Unknown] lisinopril 5 mg PO QDAY 02/08/20 [History Confirmed 04/25/20 Last Taken Unknown] cyanocobalamin (vitamin B-12) 1,000 mcg SUBCUT QMONTH 04/25/20 [History Confirmed 04/25/20 Last Taken Unknown] levothyroxine 75 mcg PO DAILY 04/25/20 [History Confirmed 04/25/20 Last Taken Unknown] metoprolol succinate 12.5 mg PO DAILY 04/25/20 [History Confirmed 04/25/20 Last Taken Unknown] omeprazole 40 mg PO BID 04/25/20 [History Confirmed 04/25/20 Last Taken Unknown] cefdinir 300 mg PO BID #10 cap 04/27/20 [Rx Last Taken Unknown] metronidazole [Flagyl] 500 mg PO Q8H #15 tab 04/27/20 [Rx Last Taken Unknown] COURSE Hospital Course Hospital course: . Discharge diagnosis: . Time Spent with Patient Time attestation: Total time spent providing and/or coordinating discharge s ervices: EXAM Constitutional Vitals: Temp Pulse Resp BP Pulse Ox 97.5 F 74 18 130/63 93 04/27/20 08:00 04/27/20 08:00 04/27/20 08:00 04/27/20 08:00 04/27/20 08:00 Discharge Data Data Completed and Pending Labs on day of discharge: Labs from last 24 hours 04/27/20 04/27/20 05:15 05:15 WBC Pending RBC Pending Hgb Pending Hct Pending MCV Pending MCH Pending MCHC Pending RDW Pending Plt Count Pending MPV Pending Band Neutrophils % Pending Platelet Estimate Pending RBC Morphology Pending Sodium Pending Potassium Pending Chloride Pending Carbon Dioxide Pending Anion Gap Pending BUN Pending Creatinine Pending GFR Calculation Pending Glucose Pending Uric Acid Pending Calcium Pending Phosphorus Pending Magnesium Pending Total Bilirubin Pending Direct Bilirubin Pending GGT Pending AST Pending ALT Pending Alkaline Phosphatase Pending Lactate Dehydrogenase Pending Total Protein Pending Albumin Pending Globulin Pending Albumin/Globulin Ratio Pending Triglycerides Pending Preliminary micro results at discharge 04/24/20 22:05 Blood Culture - Preliminary Blood 04/24/20 22:00 Blood Culture - Preliminary Blood 04/25/20 09:55 Gram Stain - Preliminary Sputum - Expectorated Sputum Culture - Preliminary Discharge Plan Patient/Caregiver Discharge Instructions Activity: increase activity as tolerated Diet: Regular Diet Activity Restrictions/Additional Instructions: All therapies/diet and activities for comfort Continue hospice care Antibiotics for additional 4 days directed towards comfort Prescriptions: New cefdinir 300 MG capsule 300 mg PO BID Qty: 10 RF: 0 metronidazole [Flagyl] 500 mg tablet 500 mg PO Q8H Qty: 15 RF: 0 No Action atorvastatin 10 mg Tablet 10 mg PO QDAY RF: 0 famotidine 20 mg Tablet 20 mg PO QDAY RF: 0 furosemide 20 mg Tablet 20 mg PO QDAY RF: 0 lisinopril 5 mg Tablet 5 mg PO QDAY RF: 0 ascorbic acid (vitamin C) [Vitamin C] 500 mg Tablet 500 mg PO DAILY RF: 0 cholecalciferol (vitamin D3) [Vitamin D3] 50 mcg (2,000 unit) Capsule 50 mcg PO QDAY RF: 0 calcium carbonate 500 mg calcium (1,250 mg) Tablet 500 mg PO BID RF: 0 omeprazole 40 mg capsule,delayed release(DR/EC) 40 mg PO BID RF: 0 levothyroxine 75 mcg tablet 75 mcg PO DAILY RF: 0 cyanocobalamin (vitamin B-12) 1,000 mcg/mL solution 1,000 mcg subcut QMONTH RF: 0 metoprolol succinate 25 mg tablet extended release 24 hr 12.5 mg PO DAILY RF: 0 Follow Up Plan Patient Disposition: [facility] Swing Bed Rehab Potential: Serious I certify that the patient requires SNF services: Yes Overall status at discharge: patient is not back to baseline Discharge Orders: Discharge Order (Routine); Ordered 04/27/20 Ordered By: Carmine Bryant
[2020-04-27 10:12] LABS: Hematocrit 24.1 % (36.0-48.0); Lymphocytes % 6 % (15-49); Mean Cell Volume 92.7 fL (80.0-100.0); Mean Corpuscular HGB Conc 33.2 g/dL (31.0-36.0); Mean Platelet Volume 9.4 fL (7.4-10.4); Monocytes % (Manual) 5 % (1-12); Platelet Count 430 K/mcL (140-440); Platelet Estimate NORMAL (Normal); RBC Morphology NORMAL (Normal); Red Cell Distribution Width 14.2 % (11.5-14.5); Segmented Neutrophils % 89 % (38-78); WBC 16.5 K/mcL (4.5-11.0)
[2020-04-27 10:29] LABS: ALT/SGPT 10 U/L (<40); AST/SGOT 15 U/L (<32); Albumin 1.8 gm/dL (3.2-5.2); Albumin/Globulin Ratio 0.6 (1.0-2.3); Alkaline Phosphatase 146 U/L (39-117); Bilirubin,Direct < 0.2 mg/dL (<0.3); Bilirubin,Total 0.3 mg/dL (0.1-1.0); Blood Urea Nitrogen 23 mg/dL (8-23); Calcium 7.8 mg/dL (8.6-10.4); Carbon Dioxide 20 mmol/L (22-30); Chloride 105 mmol/L (96-108); Globulin 2.9 gm/dL (2.2-3.7); Glomerular Filtration Rate 65; Glucose 75 mg/dL (70-105); Lactate Dehydrogenase 171 U/L (135-225); Phosphorous 2.9 mg/dL (2.5-4.5); Triglycerides 70 mg/dL (<150); Uric Acid 5.1 mg/dL (2.5-8.0)
== END 2020-04-27 11:05 | disposition other institution (70) | DRG 180 ==
LOC: ICU 18:57 → MEDSUR 04-26 19:40
PROVIDERS: ADMIT Internal Medicine; ATTEND Internal Medicine